=== PATIENT | female | born 1965 | race Caucasian/White ===

== ENCOUNTER 2020-05-29 23:21 | Emergency (ER) | payer OTHER ==
[2020-05-29 23:38] VITALS: BP 125/76
--- NOTE | 2020-05-30 00:42 | EKG REPORT ---
SEVERITY:- NORMAL ECG - SINUS RHYTHM : Confirmed by: Chiki Yeager 30-May-2020 00:41:54
--- NOTE | 2020-05-30 00:42 | ER Document Report ---
ED Medical Screen (RME) - General Chief Complaint: Shoulder Pain Stated Complaint: SHOULDER PAIN,BACK,DIZZINESS Time Seen by Provider: 05/30/20 00:29 Primary Care Provider: JEROD CARRINGTON NP [Primary Care Provider] - Follow up as needed Mode of Arrival: Ambulatory Information source: Patient - HPI Patient complains to provider of: palpitations Notes: 05/30/20 00:40 Patient here with complaints of 4 days of intermittent sensation of some pressure in her chest some pain in her back and feeling her heart is beating irregular. She states that when she checked her blood pressure on her machine, it was telling her that her heart rate was irregular. She does complain of some mild shoulder pain currently but denies any chest pain currently. She does not feel like she is having palpitations currently. No history of atrial fibrillation or arrhythmia. She does have a history of hypertension. Exam: Nontoxic, no distress. Lungs clear and equal throughout. Regular rate and rhythm, no murmur. An initial examination was made on the patient as part of the triage process, and it was determined a more comprehensive evaluation was necessary. Initial orders were placed and patient was transferred to another provider in the ED who assumed care and finished evaluation and plan. - Related Data Allergies/Adverse Reactions: Penicillins Allergy (Verified 05/30/20 00:39) Past Medical History Past Surgical History: Reports: Hx Cholecystectomy - 2002, Hx Tubal Ligation - Immunizations Hx Diphtheria, Pertussis, Tetanus Vaccination: Yes Physical Exam - Vital signs Vitals: Temp Pulse Resp BP Pulse Ox 97.9 F 80 18 125/76 100 05/29/20 23:36 05/29/20 23:36 05/29/20 23:36 05/29/20 23:36 05/29/20 23:36 Course - Vital Signs Vital signs: Temp Pulse Resp BP Pulse Ox 97.9 F 80 18 125/76 100 05/29/20 23:36 05/29/20 23:36 05/29/20 23:36 05/29/20 23:36 05/29/20 23:36 Doctor's Discharge - Discharge Referrals: JEROD CARRINGTON NP [Primary Care Provider] - Follow up as needed
[2020-05-30 01:07] LABS: ABSOLUTE EOSINOPHILS # (AUTO) 0.1 10^3/uL (0.0-0.6); ABSOLUTE LYMPHOCYTES (AUTO) 1.9 10^3/uL (0.5-4.7); ABSOLUTE MONOCYTES (AUTO) 0.5 10^3/uL (0.1-1.4); ABSOLUTE NEUT (AUTO) 7.3 10^3/uL (1.7-8.2); BASOPHILS % (AUTO) 0.4 % (0-2); EOSINOPHILS % (AUTO) 0.9 % (0-6); HEMATOCRIT 40.8 % (36.0-47.0); HEMOGLOBIN 14.5 g/dL (12.0-15.5); LYMPHOCYTES % (AUTO) 19.4 % (13-45); MEAN CORPUSCULAR HEMOGLOBIN 30.5 pg (27.0-33.4); MEAN CORPUSCULAR HGB CONC 35.4 g/dL (32.0-36.0); MEAN CORPUSCULAR VOLUME 86 fl (80-97); MONOCYTES % (AUTO) 5.4 % (3-13); PLATELET COUNT 278 10^3/uL (150-450); RED BLOOD COUNT 4.74 10^6/uL (3.72-5.28); RED CELL DISTRIBUTION WIDTH 12.9 % (11.5-14.0); SEGMENTED NEUTROPHILS % (AUTO) 73.9 % (42-78); TOTAL CELLS COUNTED % (AUTO) 100 %; WHITE BLOOD COUNT 9.8 10^3/uL (4.0-10.5)
[2020-05-30 01:27] LABS: ALBUMIN 4.3 g/dL (3.5-5.0); ALKALINE PHOSPHATASE 57 U/L (38-126); ANION GAP 8 (5-19); ASPARTATE AMINO TRANSFERASE 26 U/L (14-36); BILIRUBIN,DIRECT 0.3 mg/dL (0.0-0.4); BILIRUBIN,TOTAL 0.5 mg/dL (0.2-1.3); BLOOD UREA NITROGEN 15 mg/dL (7-20); CALCIUM 9.3 mg/dL (8.4-10.2); CARBON DIOXIDE 32 mmol/L (22-30); CHLORIDE 99 mmol/L (98-107); GLUCOSE 109 mg/dL (75-110); POTASSIUM 3.3 mmol/L (3.6-5.0); TOTAL PROTEIN 7.4 g/dL (6.3-8.2)
[2020-05-30 01:46] LABS: FREE T4 (FREE THYROXINE) 1.05 ng/dL (0.78-2.19)
--- NOTE | 2020-05-30 01:50 | RADIOLOGY REPORT (SQ) ---
CHEST X-RAY 2 view on 05/30/2020 at 1:04 AM CLINICAL INDICATION: Palpitations COMPARISON: 06/07/2012 FINDINGS: The lungs are clear. Cardiac, hilar and mediastinal contours are within normal limits. Pulmonary vascularity is within normal limits. No bony abnormality is noted. IMPRESSION: No active disease.
[2020-05-30 02:00] LABS: THYROID STIMULATING HORMONE 4.48 uIU/mL (0.47-4.68)
== END 2020-05-30 04:05 | disposition left against medical advice (07) ==
LOC: ER 23:21
DX: R07.89 Other chest pain (principal); M25.519 Pain in unspecified shoulder; R00.2 Palpitations; M54.9 Dorsalgia, unspecified; I10 Essential (primary) hypertension; Z88.0 Allergy status to penicillin; Z53.20 Procedure and treatment not carried out because of patient's decision for unspecified reasons
CPT/HCPCS: 36415; 71046; 80053; 83735; 84439; 84443; 84484; 85025; 93005; 93010; 99281

== ENCOUNTER → 2020-05-30 | Outpatient (CLI) | payer OTHER ==
[2020-05-30 13:39] LABS: ABSOLUTE EOSINOPHILS # (AUTO) 0.1 10^3/uL (0.0-0.6); ABSOLUTE LYMPHOCYTES (AUTO) 2.4 10^3/uL (0.5-4.7); ABSOLUTE MONOCYTES (AUTO) 0.4 10^3/uL (0.1-1.4); ABSOLUTE NEUT (AUTO) 5.7 10^3/uL (1.7-8.2); BASOPHILS % (AUTO) 0.4 % (0-2); HEMATOCRIT 41.6 % (36.0-47.0); LYMPHOCYTES % (AUTO) 28.3 % (13-45); MEAN CORPUSCULAR HEMOGLOBIN 30.5 pg (27.0-33.4); MEAN CORPUSCULAR HGB CONC 36.1 g/dL (32.0-36.0); MEAN CORPUSCULAR VOLUME 85 fl (80-97); MONOCYTES % (AUTO) 4.5 % (3-13); PLATELET COUNT 287 10^3/uL (150-450); RED BLOOD COUNT 4.93 10^6/uL (3.72-5.28); RED CELL DISTRIBUTION WIDTH 12.9 % (11.5-14.0); SEGMENTED NEUTROPHILS % (AUTO) 65.8 % (42-78); TOTAL CELLS COUNTED % (AUTO) 100 %; WHITE BLOOD COUNT 8.7 10^3/uL (4.0-10.5)
[2020-05-30 13:55] LABS: ALBUMIN 4.7 g/dL (3.5-5.0); ALKALINE PHOSPHATASE 64 U/L (38-126); ANION GAP 8 (5-19); ASPARTATE AMINO TRANSFERASE 26 U/L (14-36); BILIRUBIN,DIRECT 0.2 mg/dL (0.0-0.4); BILIRUBIN,TOTAL 0.8 mg/dL (0.2-1.3); BLOOD UREA NITROGEN 12 mg/dL (7-20); CALCIUM 9.5 mg/dL (8.4-10.2); CARBON DIOXIDE 31 mmol/L (22-30); CHLORIDE 99 mmol/L (98-107); GLUCOSE 102 mg/dL (75-110); POTASSIUM 3.6 mmol/L (3.6-5.0); TOTAL PROTEIN 7.9 g/dL (6.3-8.2)
[2020-05-30 14:07] LABS: CREATINE KINASE MB 0.26 ng/mL (<4.55)
[2020-05-30 14:08] LABS: TROPONIN I < 0.012 ng/mL
== END ==
LOC: OD 13:01
PROVIDERS: ATTEND Nurse Practitioner Primary Care
DX: I20.9 Angina pectoris, unspecified (principal); R00.2 Palpitations
CPT/HCPCS: 36415; 82553; 84484; 87070